=== PATIENT | female | born 1980 | race Caucasian/White ===

== ENCOUNTER 2016-05-26 21:35 | Emergency (ER) | payer MEDICAID, OTHER ==
--- NOTE | 2016-05-26 21:43 | ED Physician Chart ---
Chief Complaint/HPI - Patient Information Date Seen:: 05/26/16 Time Seen:: 21:42 Chief Complaint:: abdominal pain History of Present Illness:: 35-year-old female history of ovarian cancer, complains of acute, worsening, constant, moderate, aching, nonradiating, 6 out of 10, lower abdominal pain since this morning. Allergies:: Allergies Allergy/AdvReac Type Severity Reaction Status Date / Time cephalexin monohydrate Allergy Verified 12/14/15 18:13 [From Keflex] Historian:: Patient Review:: Nurse's Note Reviewed Review of Systems - Review of Systems Other: Complete system review otherwise unremarkable except as noted in HPI. Past Medical History - Past Medical History Past Medical History: Other (history of cervical cancer) Family History: None Social History: Non Smoker, No Alcohol, No Drug Use, Employed Surgical History: , other (hysterectomy) Psychiatricy History: None Medication: None Family Medical History - Family Member Father History Unknown: Yes Ethnicity: Living Status: Still Living Hx Family Hypertension: Yes Hx Family Diabetes: Yes Mother History Unknown: Yes Ethnicity: Unknown Living Status: Still Living Hx Family Cancer: No Hx Family Coronary Artery Disease: No Hx Family Congestive Heart Failure: No Hx Family Hypertension: Yes Hx Family Stroke: No Hx Family Diabetes: Yes Hx Family Seizures: No Hx Family Dementia: No Hx Family AIDS: No Hx Family HIV: No Hx Family COPD: No Hx Family Hepatitis: No Hx Family Psychiatric Problems: No Hx Family Tuberculosis: No Physical Exam - Physical Examination Other:: INITIAL VITAL SIGNS: Reviewed by me GENERAL: Alert and interactive. No acute distress HEAD: Head is normocephalic and atraumatic EYES: EOMI. . No scleral icterus. No conjunctival injection ENT: Moist mucous membranes. NECK: Supple. No masses. Full range of motion RESPIRATORY: No tachypnea. Clear breath sounds bilaterally. No wheezing, rales, or rhonchi CV: Regular rate and rhythm. No murmurs, rubs, or gallops ABDOMEN: Soft, non-distended, some slight tenderness to palpation around the lower abdominal region. No guarding. No rebound. No masses. EXTREMITIES: No deformity. No cyanosis. No edema. SKIN: Warm and dry. No obvious rashes. NEUROLOGIC: Alert and oriented. Face is symmetric. Speech is normal. Moves all extremities equally. Motor and sensory distally intact. Labs/Radiology/EKG Results - Lab Results Results: Lab Results 05/26/16 05/26/16 05/26/16 Range/Units 21:42 21:42 23:11 WBC 6.0 (4.8-10.8) Th/cmm RBC 4.45 (3.80-5.10) Mil/cmm Hgb 12.4 (11.7-15.5) gm/dL Hct 36.5 (35.0-45.0) % MCV 81.9 (81-100) fl MCH 27.8 (27.0-31.0) pg MCHC Differential 33.9 (28.0-36.0) pg RDW 12.7 (11.5-20.0) % Plt Count 171 (150-400) Th/cmm MPV 10.9 fl Neutrophils % 61.7 (40.0-80.0) % Lymphocytes % 25.9 (20.0-50.0) % Monocytes % 8.9 (2.0-10.0) % Eosinophils % 2.9 (0.0-5.0) % Basophils % 0.6 (0.0-2.0) % Sodium (136-145) mEq/L Potassium (3.5-5.1) mEq/L Chloride (98-107) mEq/L Carbon Dioxide (21.0-31.0) mEq/L Anion Gap (7.0-16.0) BUN (7-25) mg/dL Creatinine (0.6-1.2) mg/dL Est GFR ( Amer) (>90) ml/min Est GFR (Non-Af Amer) ml/min BUN/Creatinine Ratio Glucose (70-105) mg/dL Calcium (8.6-10.3) mg/dL Total Bilirubin (0.3-1.0) mg/dL AST (13-39) U/L ALT (7-52) U/L Alkaline Phosphatase (34-104) U/L Total Protein (6.0-8.3) gm/dL Albumin (3.7-5.3) gm/dL Globulin gm/dL Albumin/Globulin Ratio (1.0-1.8) Amylase (29-103) U/L Lipase (11-82) U/L Urine Source CLEAN C Urine Color YELLOW Urine Clarity HAZY (CLEAR) Urine pH 5.5 Ur Specific [place] 1.025 (1.005-1.030) Urine Protein NEGATIVE (NEGATIVE) mg/dL Urine Glucose (UA) NEGATIVE (NEGATIVE) mg/dL Urine Ketones NEGATIVE (NEGATIVE) mg/dL Urine Blood MODERATE H (NEGATIVE) Urine Nitrate NEGATIVE (NEGATIVE) Urine Bilirubin NEGATIVE (NEGATIVE) Urine Urobilinogen 0.2 (0.2 - 1.0) E.U./dL Ur Leukocyte Esterase TRACE H (NEGATIVE) Urine RBC 2-5 (0-5) /hpf Urine WBC 2-5 (0-5) /hpf Ur Epithelial Cells MODERATE (FEW) /lpf Urine Bacteria MODERATE (NONE SEEN) /hpf Urine Test NEGATIVE 05/26/16 Range/Units 23:11 WBC (4.8-10.8) Th/cmm RBC (3.80-5.10) Mil/cmm Hgb (11.7-15.5) gm/dL Hct (35.0-45.0) % MCV (81-100) fl MCH (27.0-31.0) pg MCHC Differential (28.0-36.0) pg RDW (11.5-20.0) % Plt Count (150-400) Th/cmm MPV fl Neutrophils % (40.0-80.0) % Lymphocytes % (20.0-50.0) % Monocytes % (2.0-10.0) % Eosinophils % (0.0-5.0) % Basophils % (0.0-2.0) % Sodium 135 L (136-145) mEq/L Potassium 3.5 (3.5-5.1) mEq/L Chloride 107 (98-107) mEq/L Carbon Dioxide 26.7 (21.0-31.0) mEq/L Anion Gap 4.8 L (7.0-16.0) BUN 9 (7-25) mg/dL Creatinine 0.7 (0.6-1.2) mg/dL Est GFR ( Amer) > 60.0 (>90) ml/min Est GFR (Non-Af Amer) > 60.0 ml/min BUN/Creatinine Ratio 12.9 Glucose 103 (70-105) mg/dL Calcium 9.4 (8.6-10.3) mg/dL Total Bilirubin 0.3 (0.3-1.0) mg/dL AST 31 (13-39) U/L ALT 45 (7-52) U/L Alkaline Phosphatase 67 (34-104) U/L Total Protein 7.1 (6.0-8.3) gm/dL Albumin 3.9 (3.7-5.3) gm/dL Globulin 3.2 gm/dL Albumin/Globulin Ratio 1.2 (1.0-1.8) Amylase 42 (29-103) U/L Lipase 28 (11-82) U/L Urine Source Urine Color Urine Clarity (CLEAR) Urine pH Ur Specific [place] (1.005-1.030) Urine Protein (NEGATIVE) mg/dL Urine Glucose (UA) (NEGATIVE) mg/dL Urine Ketones (NEGATIVE) mg/dL Urine Blood (NEGATIVE) Urine Nitrate (NEGATIVE) Urine Bilirubin (NEGATIVE) Urine Urobilinogen (0.2 - 1.0) E.U./dL Ur Leukocyte Esterase (NEGATIVE) Urine RBC (0-5) /hpf Urine WBC (0-5) /hpf Ur Epithelial Cells (FEW) /lpf Urine Bacteria (NONE SEEN) /hpf Urine Test - Radiology Results Results: CT abdomen and pelvis without contrast NAD ED Septic Shock - . Is Septic Shock (SBP<90, OR Lactate>4 mmol\L) present?: No Reassessment (Disposition) - Reassessment Reassessment:: The patient's blood pressure was elevated (>120/80) but appears stable without evidence of hypertensive emergency or urgency. The patient was counseled about the risks hypertension urged to pursue outpatient monitoring and therapy within a week with her primary care physician. Patient has negative CT scan. Urine showed a urinary tract infection. Provided intramuscular Toradol which relieved the pain. Also provided prescription for Macrobid and ibuprofen. Follow up with PCP in one to 2 days. Gave return to ER precautions. Patient says she understands and agrees with the plan. Reassessment Condition:: Improved - Diagnosis Diagnosis:: UTI, acute, with hematuria Elevated blood pressure without the diagnosis of hypertension - Aftercare/Follow up Instructions Aftercare/Follow-Up Instructions:: Counseled pt regarding lab results/diagnosis & need follow up, Refer to Discharge Instructions Medication Prescribed:: Macrobid Ibuprofen - Patient Disposition Discharge/Transfer:: Home Time:: 23:41 Condition at Disposition:: Improved ED Discharge Plan - Patient Disposition Admit/Discharge/Transfer: PT DISCHARGED HOME Condition at Disposition: Improved Instructions: Urinary Tract Infection Additional Instructions: follow up with primary doctor within 1-2 days. take medication as prescribed.
[2016-05-26 22:13] LABS: URINE BILIRUBIN NEGATIVE (NEGATIVE); URINE BLOOD MODERATE (NEGATIVE); URINE COLOR YELLOW; URINE GLUCOSE (UA) NEGATIVE (NEGATIVE); URINE KETONE NEGATIVE (NEGATIVE); URINE PH 5.5; URINE PROTEIN NEGATIVE (NEGATIVE); URINE UROBILINOGEN 0.2 E.U./dL (0.2 - 1.0)
[2016-05-26 22:16] LABS: URINE EPITHELIAL CELLS MODERATE /lpf (FEW)
[2016-05-26 22:17] LABS: URINE BACTERIA MODERATE /hpf (NONE SEEN)
[2016-05-26 23:17] LABS: % BASOPHILS 0.6 % (0.0-2.0); % EOSINOPHILS 2.9 % (0.0-5.0); % LYMPHOCYTES 25.9 % (20.0-50.0); % MONOCYTES 8.9 % (2.0-10.0); % NEUTROPHILS 61.7 % (40.0-80.0); HEMATOCRIT 36.5 % (35.0-45.0); HEMOGLOBIN 12.4 gm/dL (11.7-15.5); MEAN CELL VOLUME 81.9 fl (81-100); MEAN CORPUSCULAR HEMOGLOBIN 27.8 pg (27.0-31.0); MEAN CORPUSCULAR HGB CONC 33.9 pg (28.0-36.0); MEAN PLATELET VOLUME 10.9 fl; NEUTROPHILE ABSOLUTE 3.7 Th/cmm (1.8-8.0); PLATELET COUNT 171 Th/cmm (150-400); RED BLOOD COUNT 4.45 Mil/cmm (3.80-5.10); RED CELL DISTRIBUTION WIDTH 12.7 % (11.5-20.0)
[2016-05-26 23:38] LABS: ALB/GLOB RATIO 1.2 (1.0-1.8); ALKALINE PHOSPHATASE 67 U/L (34-104); AMYLASE SERUM 42 U/L (29-103); ANION GAP 4.8 (7.0-16.0); BILIRUBIN,TOTAL 0.3 mg/dL (0.3-1.0); BUN - UREA NITROGEN 9 mg/dL (7-25); BUN/CREATININE RATIO 12.9; CALCIUM SERUM 9.4 mg/dL (8.6-10.3); CARBON DIOXIDE 26.7 mEq/L (21.0-31.0); CHLORIDE 107 mEq/L (98-107); CREATININE - SERUM 0.7 mg/dL (0.6-1.2); GLUCOSE 103 mg/dL (70-105); LIPASE 28 U/L (11-82); POTASSIUM SERUM 3.5 mEq/L (3.5-5.1); SGOT 31 U/L (13-39); SGPT/ALT 45 U/L (7-52); SODIUM SERUM 135 mEq/L (136-145)
--- NOTE | 2016-05-27 12:20 | Diagnostic Imaging Report ---
CT abdomen and pelvis without intravenous contrast Indication: . Periumbilical abdominal pain Comparison: CT abdomen and pelvis on 04/06/2014, Technique: Axial images were obtained from the lung bases to the bilateral proximal femurs without IV contrast. Coronal reconstructions were made. total DLP: 523, CTDI10.3 FINDINGS: Atelectatic changes of the lung bases are noted. Assessment of the solid organs is limited due to lack of IV contrast. No evidence of focal hepatic lesions. No focal splenic or pancreatic lesions. No focal adrenal lesions. No evidence of hydronephrosis or focal renal lesions. There is mild induration of the subcutaneous tissues and skin thickening involving the anterior pelvis. Moderate stool is noted. No evidence of acute appendicitis. No free air free fluid. Small fat-containing umbilical hernia is seen with minimal surrounding inflammatory change. Mild degenerative changes of the spine are noted. Borderline prominent right lower quadrant lymph nodes are noted, unchanged. IMPRESSION: Small fat-containing umbilical hernia with minimal surrounding inflammatory changes. This may correspond to patient's area of pain. Nonspecific mild inflammatory change and areas of skin thickening along the subcutaneous tissues of the anterior pelvic wall. Similar findings were seen on prior exam. No evidence of bowel obstruction. No evidence of free fluid.
== END 2016-05-27 00:15 | disposition home or self-care (01) ==
LOC: ER 21:35
DX: N39.0 Urinary tract infection, site not specified (principal); R31.9 Hematuria, unspecified; R03.0 Elevated blood-pressure reading, without diagnosis of hypertension; Z88.1 Allergy status to other antibiotic agents
CPT/HCPCS: 99285; 96372; 74176; 36415; 85025; 81001; 82150; 81025; 83690; 80053; J1885

== ENCOUNTER 2017-11-30 12:43 | Emergency (ER) | payer MEDICAID ==
--- NOTE | 2017-11-30 14:29 | Diagnostic Imaging Report ---
Right wrist (3 views) HISTORY: Pain, trauma No acute bony abnormalities are seen. No fractures. Joint spaces appear normal. IMPRESSION: 1. No acute abnormalities. In the presence of recent trauma and persistent symptoms, a repeat radiograph in 5-7 days may be helpful for detection of a subtle or occult fracture.
--- NOTE | 2017-11-30 15:54 | ED Physician Chart ---
ED Chief Complaint/HPI - Patient Information Date Seen:: 11/30/17 Time Seen:: 13:00 Chief Complaint:: Right Wrist Pain History of Present Illness:: onset x 3 days of intermittent, dull, MS type Right Wrist pain after a twisting type injury; pt denies paresthesias, weakness, dizziness, LOC, ALOC, AMS, vertigo, H/As, neck pain, C/P, SOB, Abd. Pain, A/N/V/D/C, fever, chills, or urinary s/s; pt's last tetanus shot: < 5 years; UTD; LNMP: 11/24/17; pt denies Allergies:: Allergies Allergy/AdvReac Type Severity Reaction Status Date / Time cephalexin monohydrate Allergy Verified 12/14/15 18:13 [From Keflex] Vitals:: Vital Signs - 8 hr 11/30/17 13:07 Temp 98.4 F HR 77 RR 16 BP 102/59 O2 Sat % 97 Historian:: Patient Review:: Nurse's Note Reviewed ED Review of Systems - Review of Systems General/Constitutional: No fever, No chills, No weight loss, No weakness, No diaphoresis, No edema, No loss of appetite Skin: No skin lesions, No rash, No bruising Head: No headache, No light-headedness Eyes: No loss of vision, No pain, No diplopia ENT: No earache, No nasal drainage, No sore throat, No tinnitus Neck: No neck pain, No swelling, No thyromegaly, No stiffness, No mass noted Cardio Vascular: No chest pain, No palpitations, No PND, No orthopnea, No edema Pulmonary: No SOB, No cough, No sputum, No wheezing GI: No nausea, No vomiting, No diarrhea, No pain, No melena, No hematochezia, No constipation, No hematemesis G/U: No dysuria, No frequency, No hematuria, No nacturia Assistant Controller: No vaginal discharge, No abnormal vaginal bleed, No contraction Musculoskeletal: No bone or joint pain, No back pain, No muscle pain Endocrine: No polyuria, No polydipsia Psychiatric: No prior psych history, No depression, No anxiety, No suicidal ideation, No homicidal ideation, No auditory hallucination, No visual hallucination Hematopoietic: No bruising, No lymphadenopathy Allergic/Immuno: No urticaria, No angioedema Neurological: No syncope, No focal symptoms, No weakness, No paresthesia, No headache, No seizure, No dizziness, No confusion, No vertigo ED Past Medical History - Past Medical History Obtainable: Yes Past Medical History: No significant medical hx Family History: None Social History: Non Smoker, No Alcohol, No Drug Use, Surgical History: None Psychiatricy History: None Medication: Reviewed Family Medical History - Family Member Father History Unknown: Yes Ethnicity: Living Status: Still Living Hx Family Hypertension: Yes Hx Family Diabetes: Yes Other Medical History: no med. prob. Mother History Unknown: Yes Ethnicity: Unknown Living Status: Still Living Hx Family Cancer: No Hx Family Coronary Artery Disease: No Hx Family Congestive Heart Failure: No Hx Family Hypertension: Yes Hx Family Stroke: No Hx Family Diabetes: Yes Hx Family Seizures: No Hx Family Dementia: No Hx Family AIDS: No Hx Family HIV: No Hx Family COPD: No Hx Family Hepatitis: No Hx Family Psychiatric Problems: No Hx Family Tuberculosis: No ED Physical Exam - Physical Examination General/Constitutional: Awake, Well-developed, well-nourished, Alert, No distress, GCS 15, Non-toxic appearing, Ambulatory Head: Atraumatic Eyes: Lids, conjuctiva normal, PERRL, EOMI Skin: Nl inspection, No rash, No skin lesions, No ecchymosis, Well hydrated, No lymphadenopathy ENMT: External ears, nose nl, TM canals nl, Nasal exam nl, Lips, teeth, gums nl , Oropharynx nl, Tonsils nl Neck: Nontender, Full ROM w/o pain, No JVD, No nuchal rigidity, No bruit, No mass, No stridor Other Neck comments:: supple; no meningeal signs; no cervical tenderness; no bruits Respiratory: Nl effort/Exclusion, Clear to Auscultation, No Wheeze/Rhonchi/Rales Cardio Vascular: RRR, No murmur, gallop, rubs, NL S1 S2, Carotid/Femoral/Distal pulses equal bilaterally GI: No tenderness/rebounding/guarding, No organomegaly, No hernia, Normal BS's, Nondistended, No mass/bruits, No McBurney tenderness, Rectum exam nl Other GI comments:: no pulsatile masses; good BS : No CVA tenderness Extremities: No tenderness or effusion, Full ROM, normal strength in all extremities, No edema, Normal digits & nails Other Extremities comments:: Right Wrist: + Tenderness upon all PROMs; no loss of ROMs; Full Active ROMs; no ligament instability; good motor, tendon, and sensory functions; good NV functions Neuro/Psych: Alert/oriented, DTR's symmetric, Normal sensory exam, Normal motor strength, Judgement/insight normal, Mood normal, Normal gait, No focal deficits Other Neuro/Psych comments:: no focal signs Misc: Normal back, No paraspinal tenderness ED Labs/Radiology/EKG Results - Lab Results Results: Laboratory Tests 11/30/17 13:15 Urine Test NEGATIVE Comments:: Reviewed - Radiology Results Comments:: NAD; No Fx/Dislocations ED Septic Shock - . Is Septic Shock (SBP<90, OR Lactate>4 mmol\L) present?: No - <6hrs of presentation: Vital Signs: Vital Signs - 8 hr 11/30/17 13:07 Temp 98.4 F HR 77 RR 16 BP 102/59 O2 Sat % 97 ED Reassessment (Disposition) - Reassessment Reassessment:: pt is asymptomatic upon discharge Reassessment Condition:: Improved - Diagnosis Diagnosis:: Dx: Right Wrist Pain; Right Wrist Injury; Right Wrist Sprains and Strains - Aftercare/Follow up Instructions Aftercare/Follow-Up Instructions:: Counseled pt regarding lab results/diagnosis & need follow up, Refer to Discharge Instructions, Counseled pt & family regarding lab results/diagnosis & need follow up - Patient Disposition Discharge/Transfer:: Home Condition at Disposition:: Stable, Improved (RTER prn if existing s/s reoccur and/or get worse and/or any other new s/s occur; X-Rays Instructions; ACIs given for all above Dx; Refer to Orthopedist BLOSSOM; F/U with PMD in one day or prn; RTER prn if concerned)
== END 2017-11-30 14:50 | disposition home or self-care (01) ==
LOC: ER 12:43
DX: S66.911A Strain of unspecified muscle, fascia and tendon at wrist and hand level, right hand, initial encounter (principal); S63.501A Unspecified sprain of right wrist, initial encounter; Z88.1 Allergy status to other antibiotic agents; X50.1XXA Overexertion from prolonged static or awkward postures, initial encounter; Y93.89 Activity, other specified; Y92.89 Other specified places as the place of occurrence of the external cause; Y99.8 Other external cause status
CPT/HCPCS: 73110-TC-RT; 81025-TC